=== PATIENT | female | born 1975 | race Caucasian/White ===

== ENCOUNTER 2017-09-09 10:50 | Emergency (ER) | payer MEDICAID, OTHER ==
[~2017-09-09] VITALS: Ht 175.3 cm; Wt 77.0 kg
[2017-09-09 10:57] VITALS: BP 138/96
[2017-09-09] MEDS ORDERED: METH4TAB81 PO (11:43)
[2017-09-09] MEDS ORDERED: CYCL-1 PO (11:43)
== END 2017-09-09 12:23 | disposition home or self-care (01) ==
LOC: ER 10:51
DX: M54.2 Cervicalgia (principal); M54.6 Pain in thoracic spine; Z98.890 Other specified postprocedural states
CPT/HCPCS: 72040; 72070; 99284; L0172

== ENCOUNTER 2021-01-06 12:18 | Emergency (ER) | payer MEDICAID, OTHER ==
[~2021-01-06] VITALS: Ht 172.7 cm; Wt 82.0 kg
[~2021-01-06 12:18] MED LIST: CYCL-1 PO; METH4TAB81 PO
[2021-01-06] MEDS ORDERED: acetaminophen 325mg tablet PO STA (12:31)
[2021-01-06] MEDS ORDERED: proCHLORperazine 10 MG/2 ml inj IV ONE (12:35)
[2021-01-06] MEDS ORDERED: normal saline 1000ML IV soln IV ONE (12:35)
[2021-01-06 13:05] LABS: BASOPHILS # (AUTO) 0.1 X10'3 (0-0.2); BASOPHILS % (AUTO) 0.8 % (0-1); EOSINOPHILS # (AUTO) 0.1 X10'3 (0-0.9); EOSINOPHILS % (AUTO) 0.9 % (0-6); HEMATOCRIT 44.7 % (35.0-45.0); HEMOGLOBIN 15.2 g/dl (12.0-16.0); LYMPHOCYTES % (AUTO) 16.2 % (21-51); MEAN CORPUSCULAR HEMOGLOBIN 29.6 PG (27.0-31.0); MEAN CORPUSCULAR HGB CONC 33.9 g/dL (33.0-36.5); MEAN CORPUSCULAR VOLUME 87.4 FL (78-98); MEAN PLATELET VOLUME 7.7 FL (7.4-10.4); MONOCYTES # (AUTO) 0.7 X10'3 (0-0.9); MONOCYTES % (AUTO) 11.7 % (2-12); NEUTROPHILS # (AUTO) 4.4 X10'3 (1.8-7.7); NEUTROPHILS % (AUTO) 70.4 % (42-75); PLATELET COUNT 289 X10'3 (140-440); RED BLOOD COUNT 5.12 X10'6 (4.20-5.60); RED CELL DISTRIBUTION WIDTH 12.2 % (11.5-14.5); WHITE BLOOD COUNT 6.3 X10'3 (4.5-11.0)
[2021-01-06 13:19] LABS: ALANINE AMINOTRANSFERASE 28 U/L (12-78); ALBUMIN 4.3 G/DL (3.4-5.0); ALKALINE PHOSPHATASE 95 IU/L (46-116); ANION GAP 13 (8-16); ASPARTATE AMINO TRANSFERASE 28 U/L (10-37); BILIRUBIN,TOTAL 0.5 MG/DL (0.1-1.0); BLOOD UREA NITROGEN 8 MG/DL (7-18); BUN/CREATININE RATIO 6.5 (6.6-38.0); CALCIUM 9.2 MG/DL (8.5-10.1); CHLORIDE 102 MMOL/L (99-107); CREATININE 1.23 MG/DL (0.40-0.90); GLUCOSE 101 MG/DL (70-104); POTASSIUM 3.4 MMOL/L (3.5-5.1); SODIUM 138 MMOL/L (135-145); TOTAL CARBON DIOXIDE 22.8 MMOL/L (24-32); TOTAL PROTEIN 8.8 G/DL (6.4-8.2); eGFR 47 ML/MIN
[2021-01-06] MEDS ORDERED: CefTRIAXone 2gm/D5W 50ml BAG 50 ML IV ONE (13:30)
[2021-01-06 14:18] LABS: ETHANOL < 0.010 GM/DL (0.0-0.010)
[2021-01-06 14:19] LABS: URINE HCG NEGATIVE (NEG)
[2021-01-06 14:24] LABS: URINE AMPHETAMINE SCREEN NEGATIVE (Neg); URINE BARBITUATE SCREEN NEGATIVE (Neg); URINE BENZODIAZEPINES SCREEN NEGATIVE (Neg); URINE CANNABINOID SCREEN POSITIVE (Neg); URINE COCAINE SCREEN NEGATIVE (Neg); URINE METHADONE SCREEN NEGATIVE (Neg); URINE OPIATE SCREEN NEGATIVE (Neg); URINE PHENCYCLIDINE SCREEN NEGATIVE (Neg)
[2021-01-06 14:28] LABS: COLOR,URINE YELLOW (Yellow); GLUCOSE, URINE NEGATIVE (Neg); KETONES,URINE TRACE mg/dl (Neg); LEUKOCYTE ESTERASE ,URINE NEGATIVE (Neg); NITRITES, URINE NEGATIVE (Neg); OCCULT BLOOD,URINE NEGATIVE (Neg); PH,URINE 8.5 (4.8-8.0); PROTEIN,URINE NEGATIVE (Neg); UROBILINOGEN,URINE 0.2 E.U/dL (0.2-1.0)
[2021-01-06] MEDS ORDERED: CASIRIVIMAB/IMDEVIMAB inject. 10 ML in normal saline 100ml IV soln 100 ML IV ONE (14:45)
[2021-01-06] MEDS ORDERED: dexamethasone sod phosphate 10mg/ml inj IV STA (14:48)
[2021-01-06 14:49] LABS: UA COLLECTION TYPE CLN CATCH MIDSTREAM
[2021-01-06 14:50] LABS: CLARITY,URINE SLIGHTLY CLOUDY (Clear); SQUAMOUS EPITHELIAL CELL,UR FEW /LPF (FEW)
[2021-01-06] MEDS ORDERED: metoclopramide 5 mg/ml inj IV ONE (14:50)
[2021-01-06] MEDS ORDERED: ketorolac trometh. 30mg/ml inj. IV ONE (14:50)
[2021-01-06 14:52] LABS: BACTERIA,URINE FEW /HPF (Neg); RBC,URINE 0-2 /HPF (0-2); WBC,URINE 0-4 /HPF (0-4)
--- NOTE | 2021-01-06 15:10 | NUR ---
GLYNN MAURO DAUGHTER [phone]
[2021-01-06] MEDS ORDERED: ONDA4TAB6 PO (16:11)
[2021-01-06 17:06] VITALS: BP 111/68
== END 2021-01-06 17:20 | disposition home or self-care (01) ==
LOC: ER 12:18
DX: U07.1 COVID-19 (principal); E86.0 Dehydration; R10.30 Lower abdominal pain, unspecified; R11.2 Nausea with vomiting, unspecified; R50.9 Fever, unspecified; R53.1 Weakness; Z98.890 Other specified postprocedural states; Z88.6 Allergy status to analgesic agent; Z88.8 Allergy status to other drugs, medicaments and biological substances; Z79.899 Other long term (current) drug therapy
CPT/HCPCS: 36415; 71045; 74176; 80053; 80305; 81001; 81025; 83605; 84145; 85025; 87040; 87635; 93005; 96361; 96365; 96375; 99285; C9803; G0480; J0696; J0780; J1100; J1885; J7030; M0243; Q0244; 80320

== ENCOUNTER 2021-07-10 06:05 | Inpatient (IN) | payer BC ==
[~2021-07-10] VITALS: Ht 172.7 cm; Wt 75.0 kg
[~2021-07-10 06:05] MED LIST changes: +ONDA4TAB6 PO
[2021-07-10] MEDS ORDERED: morphine 4 MG/ML inj SYRINge IV PRN (07:20)
[2021-07-10] MEDS ORDERED: normal saline 1000ML IV soln IVB ONE (07:20)
[2021-07-10] MEDS ORDERED: ondansetron/PF 4mg/2ml inj IV ONE (07:20)
[2021-07-10 07:31] LABS: BASOPHILS # (AUTO) 0.1 X10'3 (0-0.2); BASOPHILS % (AUTO) 1.1 % (0-1); EOSINOPHILS # (AUTO) 0.2 X10'3 (0-0.9); EOSINOPHILS % (AUTO) 3.8 % (0-6); HEMATOCRIT 38.8 % (35.0-45.0); HEMOGLOBIN 13.2 g/dl (12.0-16.0); LYMPHOCYTES # (AUTO) 1.7 X10'3 (1.1-4.8); LYMPHOCYTES % (AUTO) 27.4 % (21-51); MEAN CORPUSCULAR HEMOGLOBIN 29.3 PG (27.0-31.0); MEAN CORPUSCULAR HGB CONC 34.1 g/dL (33.0-36.5); MEAN CORPUSCULAR VOLUME 85.9 FL (78-98); MEAN PLATELET VOLUME 8.2 FL (7.4-10.4); MONOCYTES # (AUTO) 0.5 X10'3 (0-0.9); MONOCYTES % (AUTO) 8.1 % (2-12); NEUTROPHILS # (AUTO) 3.7 X10'3 (1.8-7.7); NEUTROPHILS % (AUTO) 59.6 % (42-75); PLATELET COUNT 298 X10'3 (140-440); RED BLOOD COUNT 4.52 X10'6 (4.20-5.60); RED CELL DISTRIBUTION WIDTH 13.1 % (11.5-14.5); WHITE BLOOD COUNT 6.3 X10'3 (4.5-11.0)
[2021-07-10 07:39] LABS: ALANINE AMINOTRANSFERASE 16 U/L (12-78); ALBUMIN 3.4 G/DL (3.4-5.0); ALBUMIN/GLOBULIN RATIO 0.9 (1.1-1.5); ALKALINE PHOSPHATASE 66 IU/L (46-116); ANION GAP 11 (8-16); ASPARTATE AMINO TRANSFERASE 16 U/L (10-37); BILIRUBIN,TOTAL 0.5 MG/DL (0.1-1.0); BLOOD UREA NITROGEN 9 MG/DL (7-18); BUN/CREATININE RATIO 9.7 (6.6-38.0); CALCIUM 8.7 MG/DL (8.5-10.1); CHLORIDE 104 MMOL/L (99-107); CREATININE 0.93 MG/DL (0.40-0.90); GLUCOSE 93 MG/DL (70-104); HCG SERUM QL NEGATIVE; LIPASE 57 U/L (73-393); POTASSIUM 3.1 MMOL/L (3.5-5.1); SODIUM 139 MMOL/L (135-145); TOTAL CARBON DIOXIDE 23.7 MMOL/L (24-32); TOTAL PROTEIN 7.2 G/DL (6.4-8.2); eGFR 65 ML/MIN
[2021-07-10 08:03] LABS: CLARITY,URINE CLEAR (Clear); COLOR,URINE YELLOW (Yellow); GLUCOSE, URINE NEGATIVE (Neg); KETONES,URINE NEGATIVE (Neg); LEUKOCYTE ESTERASE ,URINE NEGATIVE (Neg); NITRITES, URINE NEGATIVE (Neg); OCCULT BLOOD,URINE NEGATIVE (Neg); PH,URINE 6.5 (4.8-8.0); PROTEIN,URINE NEGATIVE (Neg); UROBILINOGEN,URINE 0.2 E.U/dL (0.2-1.0)
[2021-07-10 08:04] LABS: UA COLLECTION TYPE NON-SPECIFIED
[2021-07-10 08:05] LABS: URINE HCG NEGATIVE (NEG)
[2021-07-10] MEDS ORDERED: potassium Cl 20 mEq SR tablet PO STA (09:07)
[2021-07-10] MEDS ORDERED: piperacillin/tazo 3.375gm/50ml 50 ML IV ONE (09:25)
[2021-07-10] MEDS ORDERED: magnesium Cl slow-release 64mg tablet PO PRN (11:25)
[2021-07-10] MEDS ORDERED: magnesium 4gm in 100ml NS 100 ML IV PRN (11:25)
[2021-07-10] MEDS ORDERED: potassium Cl 20 mEq SR tablet PO PRN ×2 (11:25)
[2021-07-10] MEDS ORDERED: ondansetron/PF 4mg/2ml inj IV PRN (11:25)
[2021-07-10] MEDS ORDERED: acetaminophen 650mg rectal suppository RC PRN (11:25)
[2021-07-10] MEDS ORDERED: magnesium 2GM in 50ml NS 50 ML IV PRN (11:25)
[2021-07-10] MEDS ORDERED: HYDROcodone/acetaminophen 5mg/325mg tablet PO PRN (11:25)
[2021-07-10] MEDS ORDERED: potassium CL 10mEq/100ml bag 100 ML IV PRN (11:25)
[2021-07-10] MEDS ORDERED: acetaminophen 325mg tablet PO PRN (11:25)
[2021-07-10] MEDS: diatr meglu/diatrizoate 30ml oral sol.-(3 dose) bottle PO SCH ×3 (11:33→13:20)
[2021-07-10 11:46] LABS: MAGNESIUM 1.8 MG/DL (1.5-2.4)
[2021-07-10] MEDS ORDERED: iohexol 300mg/ml 100ml inj. ONE (12:09)
[2021-07-10] MEDS: normal saline 1000ml 1,000 ML IV SCH ×2 (12:16→22:24)
--- NOTE | 2021-07-10 13:24 | NUR ---
Patient to CT after last dose of oral contrast.
--- NOTE | 2021-07-10 15:23 | NUR ---
Patient's ex-, Conor called for update; patient does not give consent to discuss information with Conor.
[2021-07-10] MEDS ORDERED: NO HOME MEDS (15:24)
[2021-07-10 17:00] VITALS: BP 111/57
--- NOTE | 2021-07-10 18:32 | NUR ---
Patient in room [facility]. I have received report from Elena Almonte RN and had the opportunity to ask questions and assume patient care.
[2021-07-10 19:00] VITALS: BP 117/70
[2021-07-10] MEDS ORDERED: magnesium citrate 296ml oral solution PO ONE (21:15)
[2021-07-10] MEDS: morphine 2 MG/ML inj. syringe IV PRN (21:30)
[2021-07-10] MEDS: K and/or MAG REPLACEMENT MC SCH (21:30)
[2021-07-11] VITALS: BP 105/59
--- NOTE | 2021-07-11 00:13 | NUR ---
Patient drank the mag citrate, but then ended up throwing up. Zofran given and new bottle of mag citrate ordered.
[2021-07-11] MEDS ORDERED: magnesium citrate 296ml oral solution PO ONE (00:15)
[2021-07-11] MEDS ORDERED: ondansetron/PF 4mg/2ml inj IV ONE (01:00)
--- NOTE | 2021-07-11 01:01 | NUR ---
Called MD as pt. still with N/V. New order for 1x dose of 8mg zofran, and if that does not work, then to give one time dose of 1mg ativan IV.
[2021-07-11] MEDS ORDERED: LORazepam 2 mg/ml vial IV ONE (01:55)
[2021-07-11] MEDS: morphine 2 MG/ML inj. syringe IV PRN (02:22)
--- NOTE | 2021-07-11 06:10 | NUR ---
Problems reprioritized. Patient report given, questions answered & plan of care reviewed with Elena Almonte RN.
[2021-07-11 06:39] LABS: BASOPHILS # (AUTO) 0.1 X10'3 (0-0.2); BASOPHILS % (AUTO) 1.1 % (0-1); EOSINOPHILS # (AUTO) 0.3 X10'3 (0-0.9); EOSINOPHILS % (AUTO) 4.8 % (0-6); HEMATOCRIT 37.9 % (35.0-45.0); HEMOGLOBIN 12.6 g/dl (12.0-16.0); LYMPHOCYTES # (AUTO) 1.3 X10'3 (1.1-4.8); LYMPHOCYTES % (AUTO) 23.5 % (21-51); MEAN CORPUSCULAR HGB CONC 33.3 g/dL (33.0-36.5); MEAN CORPUSCULAR VOLUME 87.2 FL (78-98); MEAN PLATELET VOLUME 7.8 FL (7.4-10.4); MONOCYTES # (AUTO) 0.5 X10'3 (0-0.9); NEUTROPHILS # (AUTO) 3.6 X10'3 (1.8-7.7); NEUTROPHILS % (AUTO) 62.6 % (42-75); PLATELET COUNT 267 X10'3 (140-440); RED BLOOD COUNT 4.34 X10'6 (4.20-5.60); RED CELL DISTRIBUTION WIDTH 13.1 % (11.5-14.5); WHITE BLOOD COUNT 5.7 X10'3 (4.5-11.0)
[2021-07-11 06:43] LABS: ALBUMIN 3.2 G/DL (3.4-5.0); ANION GAP 6 (8-16); BLOOD UREA NITROGEN 5 MG/DL (7-18); BUN/CREATININE RATIO 6.7 (6.6-38.0); CALCIUM 8.4 MG/DL (8.5-10.1); CHLORIDE 109 MMOL/L (99-107); CREATININE 0.75 MG/DL (0.40-0.90); GLUCOSE 77 MG/DL (70-104); MAGNESIUM 2.1 MG/DL (1.5-2.4); POTASSIUM 3.6 MMOL/L (3.5-5.1); SODIUM 141 MMOL/L (135-145); TOTAL CARBON DIOXIDE 26.2 MMOL/L (24-32); eGFR 84 ML/MIN
--- NOTE | 2021-07-11 06:44 | NUR ---
Patient in room [facility]. I have received report from SARA Renteria and had the opportunity to ask questions and assume patient care.
[2021-07-11] MEDS: normal saline 1000ml 1,000 ML IV SCH ×2 (07:25→10:34)
[2021-07-11 08:14] VITALS: BP 148/70
[2021-07-11] MEDS: K and/or MAG REPLACEMENT MC SCH (08:23)
--- NOTE | 2021-07-11 08:35 | NUR ---
Malnutrition consult: Pt admitted w/ abd pain over the last month per EMR. Per MST, pt unsure of wt loss though had decrease in appetite r/t abd pain. Per ED note, no unexplained wt loss was reported and pt appears WD/WN. No edema noted. Pt currently NPO. At this time pt does not meet minimum criteria for malnutrition. Addendum: 07/11/21 at [address] Amended: Links added.
[2021-07-11 11:20] VITALS: BP 113/73
--- NOTE | 2021-07-11 16:55 | NUR ---
VS stable, pt ready for discharge. DC instructions and care given to pt and Ayo-; both verbalized understanding. IV discontinued, no s/sx of complications. Pt escorted via wheelchair with staff.
== END 2021-07-11 16:57 | disposition home or self-care (01) | DRG 392 ==
LOC: ER 06:06 → ED HOLD 11:25 → SUR 3N 16:45
PROVIDERS: ADMIT Internal Medicine; ATTEND Internal Medicine
DX: R10.31 Right lower quadrant pain (principal); R63.0 Anorexia; Z20.822 Contact with and (suspected) exposure to COVID-19; E87.6 Hypokalemia; Z68.25 Body mass index [BMI] 25.0-25.9, adult; Z88.5 Allergy status to narcotic agent; Z88.8 Allergy status to other drugs, medicaments and biological substances
CPT/HCPCS: 36415; 74176; 76856; 80048; 80053; 81003; 81025; 83690; 83735; 84484; 84703; 85025; 87081; 87635; 93976; 96365; 96366; 96375; 99285; C9803; G0378; J2060; J2270; J2405; J2543; J7030; Q9963; Q9967

== ENCOUNTER 2021-07-29 23:55 | Emergency (ER) | payer BC ==
[~2021-07-29] VITALS: Ht 172.7 cm; Wt 73.6 kg
[2021-07-30 03:55] LABS: URINE HCG NEGATIVE (NEG)
[2021-07-30 03:58] LABS: CLARITY,URINE CLEAR (Clear); COLOR,URINE YELLOW (Yellow); GLUCOSE, URINE NEGATIVE (Neg); KETONES,URINE NEGATIVE (Neg); LEUKOCYTE ESTERASE ,URINE NEGATIVE (Neg); NITRITES, URINE NEGATIVE (Neg); OCCULT BLOOD,URINE LARGE (Neg); PROTEIN,URINE NEGATIVE (Neg); UROBILINOGEN,URINE 0.2 E.U/dL (0.2-1.0)
[2021-07-30 04:03] LABS: UA COLLECTION TYPE CLN CATCH MIDSTREAM
[2021-07-30 04:04] LABS: BACTERIA,URINE NONE SEEN /HPF (Neg); RBC,URINE 0-2 /HPF (0-2); SQUAMOUS EPITHELIAL CELL,UR FEW /LPF (FEW); WBC,URINE NONE SEEN /HPF (0-4)
--- NOTE | 2021-07-30 05:06 | NUR ---
Pt back from radiology, 20g piv started right a/c one attempt. Bloods drawn from same site. Flushed well with 10cc NS. Bloods labeled, walked to lab, yellow, green, purple and blue tops. PIV secured with transparent dressing and clear tape. No bleeding or drainage. Spouse at bedside.
[2021-07-30 05:11] LABS: BASOPHILS # (AUTO) 0.1 X10'3 (0-0.2); BASOPHILS % (AUTO) 0.8 % (0-1); EOSINOPHILS % (AUTO) 0.1 % (0-6); HEMATOCRIT 39.3 % (35.0-45.0); HEMOGLOBIN 13.3 g/dl (12.0-16.0); LYMPHOCYTES # (AUTO) 0.6 X10'3 (1.1-4.8); LYMPHOCYTES % (AUTO) 7.2 % (21-51); MEAN CORPUSCULAR HEMOGLOBIN 28.8 PG (27.0-31.0); MEAN CORPUSCULAR HGB CONC 33.7 g/dL (33.0-36.5); MEAN CORPUSCULAR VOLUME 85.4 FL (78-98); MEAN PLATELET VOLUME 8.7 FL (7.4-10.4); MONOCYTES # (AUTO) 0.3 X10'3 (0-0.9); MONOCYTES % (AUTO) 3.3 % (2-12); NEUTROPHILS # (AUTO) 7.7 X10'3 (1.8-7.7); NEUTROPHILS % (AUTO) 88.6 % (42-75); PLATELET COUNT 323 X10'3 (140-440); RED BLOOD COUNT 4.61 X10'6 (4.20-5.60); RED CELL DISTRIBUTION WIDTH 13.3 % (11.5-14.5); WHITE BLOOD COUNT 8.7 X10'3 (4.5-11.0)
[2021-07-30 05:18] LABS: ALANINE AMINOTRANSFERASE 14 U/L (12-78); ALBUMIN 3.7 G/DL (3.4-5.0); ALKALINE PHOSPHATASE 63 IU/L (46-116); ANION GAP 13 (8-16); ASPARTATE AMINO TRANSFERASE 17 U/L (10-37); BILIRUBIN,TOTAL 0.6 MG/DL (0.1-1.0); BLOOD UREA NITROGEN 7 MG/DL (7-18); BUN/CREATININE RATIO 7.8 (6.6-38.0); CALCIUM 9.3 MG/DL (8.5-10.1); CHLORIDE 107 MMOL/L (99-107); GLUCOSE 100 MG/DL (70-104); POTASSIUM 3.8 MMOL/L (3.5-5.1); SODIUM 140 MMOL/L (135-145); TOTAL CARBON DIOXIDE 20.1 MMOL/L (24-32); TOTAL PROTEIN 7.4 G/DL (6.4-8.2); eGFR 68 ML/MIN
[2021-07-30 05:53] LABS: APTT 24 SECONDS (22-32)
[2021-07-30] MEDS ORDERED: dexamethasone sod phosphate 10mg/ml inj IV STA (10:21)
[2021-07-30] MEDS ORDERED: SUMAtriptan succ. 6 MG/0.5ml vial SQ ONE (10:25)
[2021-07-30] MEDS ORDERED: proCHLORperazine 10 MG/2 ml inj IV ONE (10:25)
[2021-07-30] MEDS ORDERED: diphenhydrAMINE 50 mg/ml inj IV ONE (10:25)
[2021-07-30] MEDS ORDERED: normal saline 1000ML IV soln IVB ONE (10:25)
[2021-07-30] MEDS ORDERED: ketorolac tromethamine 15mg/ml inj. IV ONE (10:25)
[2021-07-30 12:15] VITALS: BP 105/68
== END 2021-07-30 12:37 | disposition home or self-care (01) ==
LOC: ER 23:56
DX: M62.830 Muscle spasm of back (principal); R51.9 Headache, unspecified; G89.29 Other chronic pain; Z98.890 Other specified postprocedural states; Z88.6 Allergy status to analgesic agent; Z88.8 Allergy status to other drugs, medicaments and biological substances
CPT/HCPCS: 36415; 71045; 72125; 72128; 72131; 72141; 72146; 72148; 80053; 81001; 81025; 85025; 85610; 85730; 93005; 99285

== ENCOUNTER 2022-12-19 09:20 | Outpatient (CLI) | payer BC, SELFPAY ==
[2022-12-19] VITALS (7 sets, daily range): BP systolic 69–153; BP diastolic 18–100; PULSE 71–106
== END 2022-12-19 23:59 | disposition home or self-care (01) ==
LOC: CARD DIAG 09:20
PROVIDERS: ATTEND Internal Medicine Interventional Cardiology
DX: R55 Syncope and collapse (principal)
CPT/HCPCS: 93660